=== PATIENT | male | born 1965 ===

== ENCOUNTER 2017-01-10 12:02 | Emergency (ER) | payer BC ==
[2017-01-10 12:22] VITALS: BP 168/89; PULSE 90; RESP 16; TEMP 98; O2SAT 98; BMI 42.3
--- NOTE | 2017-01-10 13:29 | ED PDOC ---
Arrival/HPI - General Historian: Patient - History of Present Illness Time/Duration: Other (3 weeks) Symptom Onset: Gradual Symptom Course: Unchanged Quality: Aching, Pressure, Stabbing Severity Level: 7 - General Chief Complaint: Finger,Hand,&Wrist Time Seen by Provider: 01/10/17 12:05 - History of Present Illness Narrative History of Present Illness (Text): 01/10/17 51-year-old male presents today with a 3 week history of left thumb pain. Patient states he was seen by his primary care physician and told that he had tendinitis. Patient states the pain is not improving. Patient denies numbness weakness or tingling in the extremity. Patient states occasionally at night he does get some paresthesias when he sleeps with the wrist splint that he has. Patient denies numbness at present time. He denies any recent trauma or injury. Patient states occasionally he'll take Motrin for pain. No other complaints ( Neha Duarte) Past Medical History - Provider Review Nursing Documentation Reviewed: Yes - Travel History Have you recently traveled outside [place] w/in the past 3 mons?: No - Tetanus Immunization Tetanus Immunization: Unknown - Cardiac Hx Cardiac Disorders: Yes Hx Hypertension: Yes - Pulmonary Hx Respiratory Disorders: No - Neurological Hx Neurological Disorder: No - HEENT Hx HEENT Disorder: No - Renal Hx Renal Disorder: No - Endocrine/Metabolic Hx Endocrine Disorders: No - Hematological/Oncological Hx Blood Disorders: No - Integumentary Hx Dermatological Disorder: No - Musculoskeletal/Rheumatological Hx Musculoskeletal Disorders: No - Gastrointestinal Hx Gastrointestinal Disorders: No - Genitourinary/Gynecological Hx Genitourinary Disorders: No - Psychiatric Hx Psychophysiologic Disorder: No Hx Substance Use: No Family/Social History - Physician Review Nursing Documentation Reviewed: Yes Family/Social History: Unknown Family HX Smoking Status: Never Smoked Hx Alcohol Use: No Hx Substance Use: No Allergies/Home Meds Allergies/Adverse Reactions: Allergies No Known Allergies Allergy (Verified 08/12/15 16:04) Home Medications: Home Meds Medication Instructions Recorded Confirmed Losartan [Cozaar] 20 mg PO DAILY 08/12/15 08/12/15 Review of Systems - Review of Systems Constitutional: absent: Fatigue Respiratory: absent: SOB, Cough Cardiovascular: absent: Chest Pain, Palpitations Gastrointestinal: absent: Abdominal Pain, Vomiting Genitourinary Male: absent: Dysuria Musculoskeletal: Arthralgias. absent: Back Pain, Neck Pain Skin: absent: Rash, Pruritis Neurological: absent: Headache, Dizziness Physical Exam Vital Signs Reviewed: Yes Temperature: Afebrile Blood Pressure: Hypertensive Pulse: Regular Respiratory Rate: Normal Appearance: Positive for: Well-Appearing, Non-Toxic, Comfortable Pain Distress: None Mental Status: Positive for: Alert and Oriented X 3 - Systems Exam Head: Present: Atraumatic Respiratory/Chest: Present: Clear to Auscultation Cardiovascular: Present: Regular Rate and Rhythm Upper Extremity: Present: Normal ROM, NORMAL PULSES, Tenderness (left hand; + ttp over 1st metacarpal into radial aspect of wrist; + Gustavo test. no edema, no erythema; no ecchymosis. ), Neurovascularly Intact, Capillary Refill < 2s. No: Swelling, Erythema, Deformity Neurological: Present: GCS=15 Skin: Present: Warm, Dry, Normal Color. No: Rashes Psychiatric: Present: Alert, Oriented x 3 Vital Signs Temp Pulse Resp BP Pulse Ox 01/10/17 12:20 98.0 F 90 16 168/89 H 98 Medical Decision Making ED Course and Treatment: I was available for consultation during PA evaluation. The chart was reviewed by me, and I agree with disposition. The documented history was done by the physician corrective therapist. The documented physical exam was done by the physician corrective therapist. The documented procedures were done by the physician corrective therapist. ( Porfirio Clark) Patient nontoxic well-appearing in no distress with stable vital signs X-rays of the left hand/thumb: No fractures X-rays of the left wrist: No fractures toradol IM Patient placed in thumb spica splint. Patient with a positive Gustavo test and tenderness over the 1st metacarpal and radial aspect of wrist; most likely with de Quervain's tenosynovitis. Patient placed into a thumb spica splint and advised to follow-up with the orthopedist. I discussed all results with patient advised to followup with the orthopedist for the next 2 days. Return if symptoms worsen persist or new symptoms develop Patient verbalizes understanding of discharge instructions and need for immediate followup. Impression: hand pain, wrist pain Motrin every 6 hours as needed for pain Use splint Rest, ice, compression, elevation Followup with the orthopedist within the next 2 days Followup with primary care physician within the next 2 days Return if any other concerning symptoms develop (Neha Duarte) - RAD Interpretation Radiology Orders: 01/10/17 12:44 HAND LEFT THUMB [RAD] Stat 01/10/17 12:45 WRIST, LEFT 3 VIEWS [RAD] Stat - Medication Orders Current Medication Orders: Discontinued Medications Ketorolac Tromethamine (Toradol) 60 mg IM STAT STA Stop: 01/10/17 12:47 Last Admin: 01/10/17 12:49 Dose: 60 mg Disposition/Present on Arrival - Present on Arrival Any Indicators Present on Arrival: No History of DVT/PE: No History of Uncontrolled Diabetes: No Urinary Catheter: No History of Decub. Ulcer: No History Surgical Site Infection Following: None - Disposition Have Diagnosis and Disposition been Completed?: Yes Disposition Time: 13:22 Patient Plan: Discharge - Disposition Diagnosis: Thumb pain Disposition: HOME/ ROUTINE Condition: GOOD Discharge Instructions (ExitCare): Arthralgia (ED) Additional Instructions: Motrin every 6 hours as needed for pain Rest, ice, compression, elevation Followup with the orthopedist/hand specialist within the next 2 days Followup with primary care physician within the next 2 days Return if any other concerning symptoms develop Prescriptions: Ibuprofen [Motrin] 600 mg PO Q6H PRN #20 tab PRN Reason: pain/fever reduction Referrals: Zehra Alexander MD [Primary Care Provider] - Follow up with primary Dawson Steiner MD [Staff Provider] - Follow up with primary Forms: WORK NOTE
--- NOTE | 2017-01-10 14:31 | RAD ---
PROCEDURE: Left Hand Radiographs. HISTORY: pain COMPARISON: None. FINDINGS: BONES: Normal. No fracture. JOINTS: Normal. No osteoarthritic changes. SOFT TISSUES: Normal. OTHER FINDINGS: There is a small osteophyte arising from the base of the 1st distal phalanx. IMPRESSION: No acute findings
--- NOTE | 2017-01-10 14:32 | RAD ---
PROCEDURE: Left Wrist Radiographs. HISTORY: pain COMPARISON: None. FINDINGS: BONES: Normal. No fracture. JOINTS: Normal. No dislocation. SOFT TISSUES: Normal. OTHER FINDINGS: None. IMPRESSION: Normal left wrist radiographs.
== END 2017-01-10 14:19 | disposition home or self-care (01) ==
LOC: ED 12:02
DX: M79.645 Pain in left finger(s) (principal)
CPT/HCPCS: 73110; 73140; 96372; 99283; J1885

== ENCOUNTER 2017-08-25 20:13 | Emergency (ER) | payer BC ==
[2017-08-25 20:13] VITALS: BMI 42.3
[2017-08-25 20:59] LABS: BASO # 0.03 [, K/mm3] (0.0-2.0); BASO % 0.3 % (0.0-3.0); EOS # 0.4 (0.0-0.7); EOS % 3.5 % (1.5-5.0); GRAN # 5.06 (1.4-6.5); GRAN % 43.4 % (50.0-68.0); HEMOGLOBIN 15.7 g/dL (14.0-18.0); LYMPH # 5.1 (1.2-3.4); LYMPH % 43.9 % (22.0-35.0); MEAN CELL VOLUME 88.2 fl (80.0-105.0); MEAN CORPUSCULAR HEMOGLOBIN 29.9 pg (25.0-35.0); MEAN CORPUSCULAR HGB CONC 33.9 g/dl (31.0-37.0); MEAN PLATELET VOLUME 9.9 fl (7.0-11.0); MONO % 8.9 % (1.0-6.0); RBC 5.25 [, 10^6/uL] (3.5-6.1); RED CELL DISTRIBUTION WIDTH 13.7 % (11.5-14.5); WHITE BLOOD COUNT 11.7 [, 10^3/ul] (4.5-11.0)
[2017-08-25 21:09] LABS: ALB/GLOB RATIO 1.2 (1.1-1.8); ALBUMIN 4.4 g/dL (3.0-4.8); ALT/SGPT 55 U/L (7-56); AST/SGOT 35 U/L (17-59); BLOOD UREA NITROGEN 14 mg/dL (7-21); GFR AFRICAN-AMERICAN > 60; GFR NON-AFRICAN AMERICAN > 60; LIPASE 57 U/L (23-300)
--- NOTE | 2017-08-25 21:15 | ED PDOC ---
Arrival/HPI - General Chief Complaint: Male Genitourinary Time Seen by Provider: 08/25/17 20:29 Historian: Patient - History of Present Illness Narrative History of Present Illness (Text): 08/25/17 20:35 Rusty Sanders is a 52 year old male, whose past medical history includes hypertension, who presents to the Emergency department complaining of left flank pain for 2 weeks. Patient denies any fever, chills, chest pain, shortness of breath, nausea, vomiting, diarrhea, urinary symptoms, neck pain, headache, dizziness, or any other complaints. Symptom Onset: Gradual Symptom Course: Unchanged Activities at Onset: Light Context: Home Past Medical History - Provider Review Nursing Documentation Reviewed: Yes - Tetanus Immunization Tetanus Immunization: Unknown - Cardiac Hx Cardiac Disorders: Yes Hx Hypertension: Yes - Pulmonary Hx Respiratory Disorders: No - Neurological Hx Neurological Disorder: No - HEENT Hx HEENT Disorder: No - Renal Hx Renal Disorder: No - Endocrine/Metabolic Hx Endocrine Disorders: No - Hematological/Oncological Hx Blood Disorders: No - Integumentary Hx Dermatological Disorder: No - Musculoskeletal/Rheumatological Hx Musculoskeletal Disorders: No - Gastrointestinal Hx Gastrointestinal Disorders: No - Genitourinary/Gynecological Hx Genitourinary Disorders: No - Psychiatric Hx Psychophysiologic Disorder: No Hx Substance Use: No Family/Social History - Physician Review Nursing Documentation Reviewed: Yes Family/Social History: Unknown Family HX Smoking Status: Never Smoked Hx Alcohol Use: No Hx Substance Use: No Allergies/Home Meds Allergies/Adverse Reactions: Allergies No Known Allergies Allergy (Verified 08/12/15 16:04) Home Medications: Home Meds Medication Instructions Recorded Confirmed Losartan [Cozaar] 20 mg PO DAILY 08/12/15 08/12/15 Review of Systems - Physician Review All systems were reviewed & negative as marked: Yes - Review of Systems Constitutional: Normal. absent: Fevers Eyes: Normal ENT: Normal Respiratory: Normal. absent: SOB, Cough Cardiovascular: Normal. absent: Chest Pain Gastrointestinal: Normal. absent: Abdominal Pain, Diarrhea, Nausea, Vomiting Genitourinary Male: Normal. absent: Dysuria, Frequency, Hematuria, Urinary Output Changes Musculoskeletal: Back Pain (+left flank pain). absent: Neck Pain Skin: Normal. absent: Rash Neurological: Normal. absent: Headache, Dizziness Endocrine: Normal Hemo/Lymphatic: Normal Psychiatric: Normal Physical Exam Vital Signs Reviewed: Yes Vital Signs Temp Pulse Resp BP Pulse Ox 08/26/17 00:36 98.2 F 82 17 140/82 98 08/25/17 23:06 82 17 146/58 L 96 08/25/17 20:39 98.4 F 87 18 152/84 H 99 08/25/17 20:23 98.4 F 87 18 152/84 H 99 Temperature: Afebrile Blood Pressure: Normal Pulse: Regular Respiratory Rate: Normal Appearance: Positive for: Well-Appearing, Non-Toxic, Comfortable Pain Distress: None Mental Status: Positive for: Alert and Oriented X 3 - Systems Exam Head: Present: Atraumatic, Normocephalic Pupils: Present: PERRL Extroacular Muscles: Present: EOMI Conjunctiva: Present: Normal Mouth: Present: Moist Mucous Membranes Neck: Present: Normal Range of Motion. No: Meningeal Signs, MIDLINE TENDERNESS , Paraspinal Tenderness Respiratory/Chest: Present: Clear to Auscultation, Good Air Exchange. No: Respiratory Distress, Accessory Muscle Use Cardiovascular: Present: Regular Rate and Rhythm, Normal S1, S2. No: Murmurs Abdomen: Present: Normal Bowel Sounds. No: Tenderness, Distention, Peritoneal Signs Back: Present: Normal Inspection. No: CVA Tenderness, Midline Tenderness, Paraspinal Tenderness Upper Extremity: Present: Normal Inspection. No: Cyanosis, Edema Lower Extremity: Present: Normal Inspection. No: Edema Neurological: Present: GCS=15, CN II-XII Intact, Speech Normal Skin: Present: Warm, Dry, Normal Color. No: Rashes Psychiatric: Present: Alert, Oriented x 3, Normal Insight, Normal Concentration Medical Decision Making ED Course and Treatment: 08/25/17 20:35 Impression: 52 year old male complaining of left flank pain for 2 weeks. Plan: -- CT Abdomen and Pelvis -- Labs, lipase -- Urinalysis -- Toradol -- Reassess and disposition Progress Notes: 08/25/17 23:32 Reviewed radiology, CT Abdomen and Pelvis shows: Lower thorax: No acute findings. ABDOMEN: Liver: Hepatic steatosis. Gallbladder and bile ducts: Unremarkable. No calcified stones. No ductal dilation. Pancreas: Unremarkable. No mass. No ductal dilation. Spleen: Unremarkable. No splenomegaly. Adrenals: Unremarkable. No mass. Kidneys and ureters: Unremarkable. No solid mass. No hydronephrosis. Stomach and bowel: Small amount of retained stool. Scattered diverticuli. Appendix: No findings to suggest acute appendicitis. PELVIS: Bladder: Unremarkable. No mass. Reproductive: Unremarkable as visualized. ABDOMEN and PELVIS: Intraperitoneal space: Unremarkable. No free air. No significant fluid collection. Bones/joints: No acute fracture. No dislocation. Soft tissues: Unremarkable. Vasculature: Unremarkable. No abdominal aortic aneurysm. Lymph nodes: Unremarkable. No enlarged lymph nodes. IMPRESSION: 1. No left hydronephrosis, renal, or definite ureteral calculus. 2. Moderate amount of retained stool. Correlate for constipation. 3. Remainder of findings as above 08/26/17 00:27 On re-evaluation, patient feels better and is in no acute distress. I have discussed the results and plan with the patient, who expresses understanding. Patient in agreement with plan to be discharged home. Patient is stable for discharge. Patient was instructed to follow up with physician or return if symptoms worsen or new concerning symptoms arise. - Lab Interpretations Lab Results: 08/25/17 20:50 08/25/17 20:50 Lab Results 08/25/17 22:10: Urine Color Yellow, Urine Appearance Clear, Urine pH 6.0, Ur Specific Bliss 1.025, Urine Protein Trace H, Urine Glucose (UA) Negative, Urine Ketones Trace H, Urine Blood Trace-intact H, Urine Nitrate Negative, Urine Bilirubin Negative, Urine Urobilinogen 1.0 H, Ur Leukocyte Esterase Negative, Urine RBC 0 - 2, Urine WBC Negative, Ur Epithelial Cells None, Urine Bacteria Neg 08/25/17 20:50: Sodium 142, Potassium 3.5 L, Chloride 102, Carbon Dioxide 27, Anion Gap 17, BUN 14, Creatinine 0.7 L, Est GFR ( Amer) > 60, Est GFR ( Non-Af Amer) > 60, Random Glucose 136 H, Calcium 10.0, Total Bilirubin 0.6, AST 35, ALT 55, Alkaline Phosphatase 85, Total Protein 8.1, Albumin 4.4, Globulin 3.7, Albumin/Globulin Ratio 1.2, Lipase 57 08/25/17 20:50: PT 12.9 H, INR 1.13 H, APTT 31.6 08/25/17 20:50: WBC 11.7 H, RBC 5.25, Hgb 15.7, Hct 46.3, MCV 88.2, MCH 29.9, MCHC 33.9, RDW 13.7, Plt Count 264, MPV 9.9, Gran % 43.4 L, Lymph % (Auto) 43.9 H, [place] % (Auto) 8.9 H, Eos % (Auto) 3.5, Baso % (Auto) 0.3, Gran # 5.06, Lymph # 5.1 H, [place] # 1.0 H, Eos # 0.4, Baso # 0.03 I have reviewed the lab results: Yes - RAD Interpretation Radiology Orders: 08/25/17 21:17 ABD & PELVIS IV CONTRAST ONLY [CT] Stat Dethistler Operator: Radiologist - Medication Orders Current Medication Orders: Discontinued Medications Cyclobenzaprine HCl (Flexeril) 10 mg PO STAT STA Stop: 08/26/17 00:23 Last Admin: 08/26/17 00:45 Dose: 10 mg Ketorolac Tromethamine (Toradol) 30 mg IVP STAT STA Stop: 08/25/17 20:39 Last Admin: 08/25/17 20:51 Dose: 30 mg MAR Pain Assessment Document 08/25/17 20:51 IT (Rec: 08/25/17 20:52 IT [id number]) Pain Reassessment Is this a pain reassessment? No Sleep Is patient sleeping during reassessment? No Presence of Pain Presence of Pain Yes Pain Scale Used Pain Scale Used Numeric IVP Administration Document 08/25/17 20:51 IT (Rec: 08/25/17 20:52 IT [id number]) Charges for Administration # of IVP Administrations 1 - Scribe Statement The provider has reviewed the documentation as recorded by the Scribsri Chauhan All medical record entries made by the Madelineibsri were at my direction and personally dictated by me. I have reviewed the chart and agree that the record accurately reflects my personal performance of the history, physical exam, medical decision making, and the department course for this patient. I have also personally directed, reviewed, and agree with the discharge instructions and disposition. Disposition/Present on Arrival - Present on Arrival Any Indicators Present on Arrival: No History of DVT/PE: No History of Uncontrolled Diabetes: No Urinary Catheter: No History of Decub. Ulcer: No History Surgical Site Infection Following: None - Disposition Have Diagnosis and Disposition been Completed?: Yes Diagnosis: Back pain Disposition: HOME/ ROUTINE Disposition Time: 00:27 Condition: GOOD Discharge Instructions (ExitCare): Back Pain (ED) Prescriptions: Cyclobenzaprine [Cyclobenzaprine HCl] 10 mg PO TID #21 tab Referrals: Zehra Alexander MD [Primary Care Provider] - Follow up with primary Forms: [employer] ([employer])
[2017-08-25 21:39] LABS: INR 1.13 (0.93-1.08); PARTIAL THROMBOPLASTIN TIME 31.6 Seconds (25.1-36.5); PROTHROMBIN TIME 12.9 SECONDS (9.4-12.5)
[2017-08-25] MEDS ORDERED: Iohexol 350 MG/100 ML VIAL ONE (22:21)
[2017-08-25 22:40] LABS: URINE BILIRUBIN NEGATIVE (NEGATIVE); URINE BLOOD TRACE-INTACT (NEGATIVE); URINE GLUCOSE (UA) NEGATIVE (NEGATIVE); URINE LEUKOCYTE ESTERASE NEGATIVE Leu/uL (NEGATIVE); URINE NITRATE NEGATIVE (NEGATIVE); URINE PROTEIN TRACE mg/dL (<30 mg/dL)
[2017-08-25 22:44] LABS: URINE APPEARANCE CLEAR (CLEAR); URINE COLOR YELLOW (YELLOW)
[2017-08-25 23:06] VITALS: PULSE 82; RESP 17
[2017-08-25 23:08] LABS: URINE BACTERIA NEG (NEG); URINE RBC 0 - 2 /hpf (0-2); URINE WBC NEGATIVE /hpf (0-6)
--- NOTE | 2017-08-25 23:28 | CT ---
EXAM: CT Abdomen and Pelvis With Intravenous Contrast CLINICAL HISTORY: 52 years old, male; Pain; Abdominal pain; Patient HX: Left flank abd pain; Additional info: Left abd pain TECHNIQUE: Axial computed tomography images of the abdomen and pelvis with intravenous contrast. All CT scans at this facility use one or more dose reduction techniques, viz.: automated exposure control; ma/kV adjustment per patient size (including targeted exams where dose is matched to indication; i.e. head); or iterative reconstruction technique. Coronal and sagittal reformatted images were created and reviewed. CONTRAST: 97 mL of OMNIPAQUE 350 administered intravenously. COMPARISON: CT - ABD PELVIS W/O PO OR IV CONT 2015-08-12 16:58 FINDINGS: Lower thorax: No acute findings. ABDOMEN: Liver: Hepatic steatosis. Gallbladder and bile ducts: Unremarkable. No calcified stones. No ductal dilation. Pancreas: Unremarkable. No mass. No ductal dilation. Spleen: Unremarkable. No splenomegaly. Adrenals: Unremarkable. No mass. Kidneys and ureters: Unremarkable. No solid mass. No hydronephrosis. Stomach and bowel: Small amount of retained stool. Scattered diverticuli. Appendix: No findings to suggest acute appendicitis. PELVIS: Bladder: Unremarkable. No mass. Reproductive: Unremarkable as visualized. ABDOMEN and PELVIS: Intraperitoneal space: Unremarkable. No free air. No significant fluid collection. Bones/joints: No acute fracture. No dislocation. Soft tissues: Unremarkable. Vasculature: Unremarkable. No abdominal aortic aneurysm. Lymph nodes: Unremarkable. No enlarged lymph nodes. IMPRESSION: 1. No left hydronephrosis, renal, or definite ureteral calculus. 2. Moderate amount of retained stool. Correlate for constipation. 3. Remainder of findings as above
[2017-08-26 00:38] VITALS: BP 140/82; TEMP 98.2; O2SAT 98
== END 2017-08-26 00:45 | disposition home or self-care (01) ==
LOC: ED 20:13
DX: M54.9 Dorsalgia, unspecified (principal); I10 Essential (primary) hypertension
CPT/HCPCS: 74177; 80053; 81001; 83690; 85025; 85610; 85730; 96374; 99284; J1885; Q9967